=== PATIENT | male | born 2000 | race Caucasian/White ===

== ENCOUNTER 2021-12-31 18:50 | Emergency (ER) | payer OTHER | END 2021-12-31 21:57 | disposition home or self-care (01) | LOC: FER 18:50 | DX: S16.1XXA Strain of muscle, fascia and tendon at neck level, initial encounter (principal); Z28.310 Unvaccinated for COVID-19; V43.52XA Car driver injured in collision with other type car in traffic accident, initial encounter | CPT/HCPCS: 99283 ==